=== PATIENT | female | born 1970 | race Asian ===

== ENCOUNTER 2017-05-13 18:30 | Emergency (ER) | payer SELFPAY ==
[~2017-05-13] VITALS: Ht 162.6 cm; Wt 65.0 kg
[2017-05-13] MEDS ORDERED: SODIUM CHLORIDE 0.9% 1,000 ML IV ONE (18:51)
[2017-05-13] MEDS ORDERED: MECLIZINE 25MG TABLET PO ONE (19:15)
[2017-05-13 19:55] LABS: BG BASE EXCESS -1.4 mmol/L (-2.0-2.0); BG CARBOXYHEMOGLOBIN 0.3 % (0.5-1.5); BG DEOXYHEMOGLOBIN 2.1 % (0.0-5.0); BG FRACTION INSPIRED OXYGEN 21; BG HCO3 ACT 21.6 mmol/L (22.0-26.0); BG METHEMOGLOBIN 0.4 % (0.0-1.5); BG OXYGEN SATURATION 97.9 % (92.0-98.5); BG OXYHEMOGLOBIN 97.2 % (94.0-97.0); BG PCO2 31.4 mmHg (35.0-45.0); BG PH 7.456 (7.350-7.450); BG PO2 104.1 mmHg (75.0-100.0); BG SAMPLE SITE RIGHT RADIAL; BG TOTAL HEMOGLOBIN 12.6 g/dL (12.0-18.0); BG VENT MODE T-TUBE
[2017-05-13 20:04] LABS: BASOPHILS % 0.7 % (0.0-2.0); EOSINOPHILS % 0.7 % (0.0-5.0); HEMATOCRIT. 34.9 % (36.0-48.0); HEMOGLOBIN. 11.4 g/dL (12.0-16.0); LYMPHOCYTES % 22.7 % (20.0-50.0); MEAN CORPUSCULAR HEMOGLOBIN 30.7 pg (28.0-32.0); MEAN CORPUSCULAR VOLUME 93.6 fL (81.0-99.0); MEAN PLATELET VOLUME 8.7 fl (7.4-10.4); MONOCYTES % 6.5 % (2.0-8.0); NEUTROPHILS % 69.4 % (40.0-76.0); PLATELET 312 x1000/uL (130-400); RED BLOOD CELL COUNT 3.73 mill/uL (4.2-5.4); RED CELL DISTRIBUTION WIDTH 13.5 % (11.6-14.6)
[2017-05-13 20:07] LABS: PROTHROMBIN TIME 10.7 sec (9.4-11.6)
[2017-05-13 20:13] LABS: HCG SCREEN NEGATIVE
[2017-05-13 20:14] LABS: AMMONIA < 25 uMol/L (<32)
[2017-05-13 20:16] LABS: CARBON DIOXIDE 24 mEq/L (21-32); CHLORIDE 107 mEq/L (98-107); ETHANOL BLOOD < 10 mg/dL
[2017-05-13 20:21] LABS: CREATINE KINASE 122 IU/L (26-192); TROPONIN I < 0.02 ng/mL (0.00-0.04)
[2017-05-13] MEDS ORDERED: SODIUM CHLORIDE 0.9% 1,950 ML IV SCH (22:00)
[2017-05-13] MEDS ORDERED: SODIUM CHLORIDE 0.9% 1000ML BAG (SEPSIS BOLUS) IV ONE (22:00)
[2017-05-13] MEDS ORDERED: LEVOFLOXACIN 750MG PREMIX 150 ML IV NR (22:00)
[2017-05-14 00:03] VITALS: BP 119/83
== END 2017-05-14 00:05 | disposition home or self-care (01) ==
LOC: ER 18:30
DX: H81.10 Benign paroxysmal vertigo, unspecified ear (principal); E87.2 Acidosis
CPT/HCPCS: 36415; 36600; 70450; 71010; 74176; 80053; 80307; 80329; 82140; 82375; 82550; 82805; 83605; 83880; 84443; 84484; 84703; 85025; 85610; 87040; 93005; 96361; 96365; 99285; G0482; J1956; J7030; Z7610; J8597

== ENCOUNTER 2017-11-03 02:36 | Emergency (ER) | payer MEDICAID, OTHER ==
[~2017-11-03] VITALS: Ht 152.4 cm; Wt 63.0 kg
[2017-11-03] MEDS ORDERED: SODIUM CHLORIDE 0.9% 1,000 ML IV ONE (04:47)
[2017-11-03] MEDS ORDERED: MECLIZINE 25MG TABLET PO ONE (05:00)
[2017-11-03 05:09] LABS: BASOPHILS % 0.7 % (0.0-2.0); EOSINOPHILS % 0.8 % (0.0-5.0); HEMATOCRIT. 37.5 % (36.0-48.0); HEMOGLOBIN. 12.7 g/dL (12.0-16.0); LYMPHOCYTES % 22.2 % (20.0-50.0); MEAN CORPUSCULAR HEMOGLOBIN 31.2 pg (28.0-32.0); MEAN CORPUSCULAR VOLUME 92.3 fL (81.0-99.0); MEAN PLATELET VOLUME 8.8 fl (7.4-10.4); MONOCYTES % 7.2 % (2.0-8.0); NEUTROPHILS % 69.1 % (40.0-76.0); PLATELET 371 x1000/uL (130-400); RED BLOOD CELL COUNT 4.06 mill/uL (4.2-5.4); RED CELL DISTRIBUTION WIDTH 13.4 % (11.6-14.6)
[2017-11-03 05:13] LABS: CHLORIDE 106 mEq/L (98-107)
[2017-11-03 05:18] LABS: ETHANOL BLOOD < 10 mg/dL
[2017-11-03 05:24] LABS: CLARITY URINE CLEAR (CLEAR); COLOR URINE YELLOW (YELLOW); KETONES URINE NEGATIVE (NEGATIVE); LEUKOCYTE ESTERASE URINE NEGATIVE (NEGATIVE); NITRITE URINE NEGATIVE (NEGATIVE); OCCULT BLOOD URINE TRACE (NEGATIVE); PROTEIN URINE NEGATIVE (NEGATIVE); SPECIFIC GRAVITY URINE 1.016 (1.005-1.030); UROBILINOGEN URINE 0.2 E.U./dL (0.2-1.0)
[2017-11-03 05:56] LABS: *AMPHETAMINES SCREEN URINE NEGATIVE (NEGATIVE); *BARBITURATES SCREEN URINE NEGATIVE (NEGATIVE); *BENZODIAZEPINES SCREEN URINE NEGATIVE (NEGATIVE); *COCAINE SCREEN URINE NEGATIVE (NEGATIVE); CANNABINOID URINE SCREEN NEGATIVE (NEGATIVE); METHADONE URINE SCREEN NEGATIVE (NEGATIVE); OPIATES URINE SCREEN NEGATIVE (NEGATIVE); PHENCYCLIDINE URINE SCREEN NEGATIVE (NEGATIVE)
[2017-11-03] MEDS ORDERED: MORPHINE SULFATE 2 MG/ML CPJ (NOT FOR IM USE) IV ONE (06:00)
[2017-11-03] MEDS ORDERED: ONDANSETRON HCL 4MG/2ML VIAL IV ONE (06:00)
[2017-11-03] MEDS ORDERED: KETOROLAC 30MG/ML VIAL IV ONE (06:30)
[2017-11-03] MEDS ORDERED: METOCLOPRAMIDE HCL 10MG/2ML VIAL IV ONE (06:30)
[2017-11-03 07:07] LABS: HCG SCREEN NEGATIVE
[2017-11-03 10:00] VITALS: BP 107/68
[2017-11-03] MEDS ORDERED: IOHEXOL-350 100 ML BOTTLE ONE (10:17)
== END 2017-11-03 10:25 | disposition home or self-care (01) ==
LOC: ER 07:23
DX: R51 Headache (principal); R11.0 Nausea; R42 Dizziness and giddiness; H53.149 Visual discomfort, unspecified
CPT/HCPCS: 36415; 70450; 70496; 70498; 71045; 80053; 80305; 81003; 83880; 84484; 84703; 85025; 93005; 96361; 96374; 96375; 99285; G0482; J1885; J2765; J7030; Q9967; Z7610; J8597